=== PATIENT | male | born 2000 | race African-American/Black ===

== ENCOUNTER 2021-07-22 10:15 | Emergency (ER) | payer OTHER ==
[~2021-07-22] VITALS: Ht 172.7 cm; Wt 73.0 kg
[2021-07-22 11:20] LABS: INFLUENZA TYPE A NEGATIVE FOR TYPE A (NEG); INFLUENZA TYPE B NEGATIVE FOR TYPE B (NEG)
[2021-07-22] MEDS ORDERED: D-ME118S47 PO (11:47)
[2021-07-22] MEDS ORDERED: DEXAMETHASONE SOD PHOSPHATE 10MG/ML 1ML VIAL IM SCH (12:00)
[2021-07-22 12:21] VITALS: BP 124/74
== END 2021-07-22 12:22 | disposition home or self-care (01) ==
LOC: EDH 10:15
DX: J30.9 Allergic rhinitis, unspecified (principal); Z79.52 Long term (current) use of systemic steroids
CPT/HCPCS: 87804 ×2; 87880; 96372; 99283; J1100